=== PATIENT | female | born 1930 | race Caucasian/White ===

== ENCOUNTER 2018-08-15 12:26 | Inpatient (IN) | payer MEDICARE ==
[2018-08-15 12:51] LABS: Bilirubin Negative (Negative); Blood, Urine Large (Negative); Clarity TURBID (Clear); Glucose, Urine (Dipstick) Negative (Negative); Leukocyte Large (Negative); Nitrite Positive (Negative); Protein, Urine (Dipstick) 300 mg/dL (Neg-Trace); Specific Gravity, Urine 1.017 (1.002-1.036)
[2018-08-15 12:55] LABS: Yeast-AUWi Flag 223.9 (0-25.0)
[2018-08-15 13:02] LABS: Bacteria/HPF 2+ HPF (None Seen)
[2018-08-15 13:03] LABS: Hyaline Casts/LPF NONE SEEN LPF (0-3 Hyaline); Other Casts/LPF None Seen LPF (0-3 Hyaline); Yeast-All Forms None Seen HPF (None Seen)
[2018-08-15 13:19] LABS: #Basophils 0.1 thou/uL (0.0-0.2); #Eosinphils 0.1 thou/uL (0.0-0.7); #Lymphocytes 1.5 thou/uL (1.20-3.40); #Monocytes 1.3 thou/uL (0.11-0.59); #Neutrophils 12.5 thou/uL (1.40-6.50); %Basophils 0.3 % (0.0-1.0); %Eosinophils 0.7 % (0.0-10.0); %Lymphocytes 9.7 % (21.0-51.0); %Monocytes 8.4 % (0.0-10.0); %Neutrophils 80.9 % (42.0-75.0); Hemoglobin 12.2 g/dL (12.0-16.0); Mean Corpuscular HGB CONC 32.1 g/dL (32.0-36.0); Mean Corpuscular Hemoglobin 30.3 pg (27.0-31.0); Mean Corpuscular Volume 94.6 fL (78.0-98.0); Mean Platelet Volume 6.9 fL (7.4-10.4); Platelet Count 375 thou/uL (130-400); RBC Distribution Width 12.7 % (11.5-14.5); Red Blood Cell (RBC) Count 4.02 mill/uL (4.20-5.40); White Blood Cell (WBC) Count 15.5 thou/uL (4.8-10.8)
[2018-08-15] MEDS ORDERED: cefTRIAXone\\ROCEPHIN 1 GM VIAL ONE (13:40)
[2018-08-15 13:41] LABS: ALT (SGPT) 15 U/L (8-55); AST (SGOT) 17 U/L (5-34); Albumin 3.3 g/dL (3.4-4.8); Alkaline Phosphatase 99 U/L (40-150); Anion Gap 16 mmol/L (10-20); BUN (Urea Nitrogen) 15 mg/dL (9.8-20.1); Bilirubin, Total 0.5 mg/dL (0.2-1.2); Calc. Creatinine Clearance 0 mL/min (70-130); Calcium 9.3 mg/dL (7.8-10.44); Carbon Dioxide 22 mmol/L (23-31); Chloride 101 mmol/L (98-107); Estimated GFR-MDRD 67; Globulin 3.1 g/dL (2.4-3.5); Glucose 114 mg/dL (83-110); Lipase 12 U/L (8-78); Potassium 3.9 mmol/L (3.5-5.1); Protein, Total 6.4 g/dL (6.0-8.3); Sodium 135 mmol/L (136-145)
[2018-08-15 13:45] LABS: Lactic Acid 1.5 mmol/L (0.5-2.2)
[2018-08-15 15:29] VITALS: BMI 24.3
--- NOTE | 2018-08-15 18:51 | HP ---
CHIEF COMPLAINT: Altered mental status. HISTORY OF PRESENT ILLNESS: This patient is an 88-year-old female who has some Alzheimer's type robb ntia, but is otherwise generally pretty healthy. The patient lives in an independent living facility here in [facility]. Patient's granddaughter is her power of team truck driver and checks on her fairly f requently. She called the patient earlier in the week and the patient reported she was doing well. She called her again yesterday and then this morning, went to check on the patient and found the kuldeep ent was still lying in bed. When she talked to her, she did not recognize the granddaughter. She is more confused than her typical baseline. She also told the granddaughter this morning that she was having some dysuria and a granddaughter who works here as a nurse also noted that she had some pelvic tenderness to palpation at that time. Currently, the patient reports that she just generally feels weak and tired. She does admit to having some dysuria and complains of some pain in her right hand a ssociated with her IV, but otherwise no other specific complaints. REVIEW OF SYSTEMS: The patient believes she had a bowel movement yesterday. She says she has been d rinking fluids, but not been eating a lot. The granddaughter says she is not sure that the patient h as not been eating or drinking at all in the last couple of days. She does manage her medications wi th the pills order and notes that the patient has not taken medications since . Otherwise, r eview of systems is unobtainable due to the patient's baseline dementia and current altered mental st atus. We are working from a conversation with the patient's granddaughter and prior medical records. PAST MEDICAL HISTORY: Alzheimer's disease, hypertension, allergic rhinitis, chronic constipation PAST SURGICAL HISTORY: x2, appendectomy, tooth extractions, status post right knee replace ment. ALLERGIES: SULFA DRUGS. CURRENT MEDICATIONS: Aspirin 81 mg daily, lisinopril 10 every day, melatonin 3 mg at bedtime, Lorata dine 10 mg every day, docusate 100 mg every day, donepezil 10 mg daily, Namenda XR extended release 2 8 mg 1 p.o. daily, Centrum Silver 1 p.o. daily. SOCIAL HISTORY: The patient lives at an independent living facility. She is a nonsmoker, nondrinker . Her granddaughter is her power of team truck driver and surrogate decision maker and she is a DNR. PHYSICAL EXAMINATION: VITAL SIGNS: BP 123/56, pulse 82, respirations 20, O2 sat 98% on room air. GENERAL APPEARANCE: Age appropriate female. She is awake and alert, very pleasant, cooperative and maintaining good sense of humor. HEENT: PERRL. No OP lesions. Oral mucosa is fairly moist. NECK: Supple and symmetric without lymphadenopathy, JVD or bruits. HEART: Regular rate and rhythm with no murmurs, gallops or rubs. LUNGS: Clear to auscultation bilaterally with no wheezes or rales. ABDOMEN: Soft, nontender, nondistended, positive bowel sounds, no masses, no organomegaly. EXTREMITIES: A well healed surgical incisional scar in the right knee. No edema. No cyanosis or cl ubbing. LABORATORY DATA: White count 15.5, hemoglobin 12.2, platelets 375, 81% neutrophils, 10% lymphocytes. Sodium 135, potassium 3.9, chloride 102, CO2 of 22, BUN 15, creatinine 0.81, glucose 114, lactic ac id 1.5. Albumin 3.3. Urinalysis: Large blood, positive nitrites, large leukocyte esterase, 7-10 re d cells, greater than 50 white cells, 7-10 squamous epithelial cells and 2+ bacteria. IMPRESSION AND PLAN: 1. Urinary tract infection with leukocytosis and some altered mental status. The patient has been g iven Rocephin. We will continue with IV Rocephin 1 gram q.24 hours. We will follow up on cultures. 2. Baseline Alzheimer's dementia, stable. We will resume her usual home medication regimen. 3. Hypertension appears to be well controlled. The patient is apparently not taking her medicine fo r a couple of days. We will hold off on resuming that until she demonstrates some need. 4. Acute metabolic encephalopathy secondary to urinary tract infection should resolve as we treat in fection.
[2018-08-15] MEDS: Donepezil HCl 10 MG TAB PO SCH (19:54)
[2018-08-15] MEDS ORDERED: MEMANTINE HCL 28 MG PO SCH (21:00)
[2018-08-16 05:27] LABS: Anion Gap 11 mmol/L (10-20); BUN (Urea Nitrogen) 11 mg/dL (9.8-20.1); Calc. Creatinine Clearance 56 mL/min (70-130); Calcium 8.7 mg/dL (7.8-10.44); Carbon Dioxide 25 mmol/L (23-31); Chloride 103 mmol/L (98-107); Estimated GFR-MDRD 74; Glucose 118 mg/dL (83-110); Potassium 3.7 mmol/L (3.5-5.1); Sodium 135 mmol/L (136-145)
[2018-08-16 05:34] LABS: Hemoglobin 11.4 g/dL (12.0-16.0); Lymphocytes 13 % (21-51); MDiff Complete? YES; Mean Corpuscular HGB CONC 31.6 g/dL (32.0-36.0); Mean Corpuscular Hemoglobin 29.8 pg (27.0-31.0); Mean Corpuscular Volume 94.2 fL (78.0-98.0); Mean Platelet Volume 7.3 fL (7.4-10.4); Monocytes 7 % (0-10); Neutrophil 79 % (42-75); PLT Morphology Comment Appears Adequate; Platelet Count 353 thou/uL (130-400); RBC Distribution Width 12.6 % (11.5-14.5); Red Blood Cell (RBC) Count 3.83 mill/uL (4.20-5.40); White Blood Cell (WBC) Count 17.4 thou/uL (4.8-10.8)
[2018-08-16] MEDS: Enoxaparin Sodium 30 MG/0.3 ML SYRINGE SC SCH (08:41)
[2018-08-16] MEDS: Aspirin 325 MG TAB PO SCH (08:41)
[2018-08-16] MEDS: Loratadine 10 MG TAB PO SCH (08:42)
[2018-08-16] MEDS: Multivitamin W/ Minerals 1 TAB PO SCH (08:42)
[2018-08-16] MEDS: Lisinopril 10 MG TAB PO SCH (08:47)
[2018-08-16] MEDS: Sodium Chloride 0.9% 1,000 ML IV SCH (08:56)
--- NOTE | 2018-08-16 09:14 | PDOC.PN ---
- Subjective Encounter Start Date: 08/16/18 Encounter Start Time: 09:12 Does not feel too bad today. - Objective Resuscitation Status: Resuscitation Status DNR:Do Not Resuscitate Vital Signs & Weight: Vital Signs (12 hours) Temp Pulse Resp BP Pulse Ox 08/16/18 08:00 96 08/16/18 07:58 98.1 F 79 18 97/53 L 96 08/16/18 04:00 98.8 F 87 16 126/60 95 08/16/18 00:00 99.7 F H 80 16 131/60 96 Weight Weight 146 lb I&O: 08/15/18 08/16/18 08/17/18 06:59 06:59 06:59 Intake Total 240 Output Total 675 Balance -435 Result Diagrams: 08/16/18 04:51 08/16/18 04:51 Phys Exam - Physical Examination Constitutional: NAD Respiratory: no wheezing, no rales, no rhonchi, clear to auscultation bilateral Cardiovascular: RRR, no significant murmur Gastrointestinal: soft, non-tender, no distention Musculoskeletal: no edema Psychiatric: normal affect Dx/Plan (1) UTI (urinary tract infection) Status: Acute Comment: Continue Roceph, add Zosyn since wbc up. Follow culture. (2) Metabolic encephalopathy Code(s): G93.41 - METABOLIC ENCEPHALOPATHY Status: Acute Comment: Appears improved. Secondary to infection. (3) Alzheimer's dementia Code(s): G30.9 - ALZHEIMER'S DISEASE, UNSPECIFIED Status: Chronic Comment: Not bad. Continue home meds. - Plan * above.
[2018-08-16] MEDS: Acetaminophen 325 MG TAB PO PRN ×2 (10:05→17:56)
[2018-08-16] MEDS: Piperacillin/Tazobactam 3.375 GM in Sodium Chloride 0.9% 100 ML IVPB SCH ×2 (12:26→17:56)
[2018-08-16] MEDS: cefTRIAXone\\ROCEPHIN 1 GM in Sodium Chloride 0.9% 100 ML IVPB SCH (14:27)
[2018-08-16] MEDS: Donepezil HCl 10 MG TAB PO SCH (21:52)
[2018-08-16] MEDS: Phenazopyridine HCl 97.5 MG TABLET PO SCH (21:52)
[2018-08-17] MEDS: Acetaminophen 325 MG TAB PO PRN ×2 (00:03→23:48)
[2018-08-17] MEDS: Piperacillin/Tazobactam 3.375 GM in Sodium Chloride 0.9% 100 ML IVPB SCH ×2 (00:05→06:01)
[2018-08-17] MEDS: Sodium Chloride 0.9% 1,000 ML IV SCH (04:20)
[2018-08-17] MEDS: Lisinopril 10 MG TAB PO SCH (09:20)
[2018-08-17] MEDS: Enoxaparin Sodium 30 MG/0.3 ML SYRINGE SC SCH (09:20)
[2018-08-17] MEDS: Aspirin 325 MG TAB PO SCH (09:20)
[2018-08-17] MEDS: Loratadine 10 MG TAB PO SCH (09:21)
[2018-08-17] MEDS: Phenazopyridine HCl 97.5 MG TABLET PO SCH ×3 (09:21→20:10)
[2018-08-17] MEDS: Multivitamin W/ Minerals 1 TAB PO SCH (09:21)
--- NOTE | 2018-08-17 09:29 | PDOC.PN ---
- Subjective Encounter Start Date: 08/17/18 Encounter Start Time: 09:27 Feels well. A little better. Still some dysuria. - Objective Resuscitation Status: Resuscitation Status DNR:Do Not Resuscitate MAR Reviewed: Yes Vital Signs & Weight: Vital Signs (12 hours) Temp Pulse Resp BP BP Pulse Ox 08/17/18 09:20 124/57 L 08/17/18 08:09 98.4 F 71 18 124/57 L 96 08/17/18 04:32 98.3 F 66 16 139/62 98 08/16/18 23:28 100.5 F H 96 16 146/63 H 96 Weight Weight 146 lb I&O: 08/16/18 08/17/18 08/18/18 06:59 06:59 06:59 Intake Total 240 1900 938 Output Total 675 Balance -435 1900 938 Result Diagrams: 08/16/18 04:51 08/16/18 04:51 Phys Exam - Physical Examination Constitutional: NAD Respiratory: no wheezing, no rales, no rhonchi, clear to auscultation bilateral Cardiovascular: RRR, no significant murmur Gastrointestinal: soft, non-tender, no distention Musculoskeletal: no edema Psychiatric: normal affect, A&O x 3 Dx/Plan (1) UTI (urinary tract infection) Status: Acute Comment: E coli. Continue Roceph, stop Zosyn. Follow blood culture. (2) Metabolic encephalopathy Code(s): G93.41 - METABOLIC ENCEPHALOPATHY Status: Acute Comment: Appears improved. Secondary to infection. (3) Alzheimer's dementia Code(s): G30.9 - ALZHEIMER'S DISEASE, UNSPECIFIED Status: Chronic Comment: Not bad. Continue home meds. - Plan * Continue IV abx today since WBC up and Tm 100.5. * Family wants to consider HH and possibly MARGARET at discharge.
[2018-08-17] MEDS: cefTRIAXone\\ROCEPHIN 1 GM in Sodium Chloride 0.9% 100 ML IVPB SCH (14:50)
[2018-08-17] MEDS: Donepezil HCl 10 MG TAB PO SCH (20:10)
[2018-08-18 05:09] LABS: Hemoglobin 10.7 g/dL (12.0-16.0); Platelet Count 314 thou/uL (130-400)
--- NOTE | 2018-08-18 08:54 | PDOC.PN ---
- Subjective Encounter Start Date: 08/18/18 Encounter Start Time: 08:52 Says she is feeling quite a bit better. - Objective Resuscitation Status: Resuscitation Status DNR:Do Not Resuscitate Vital Signs & Weight: Vital Signs (12 hours) Temp Pulse Resp BP BP Pulse Ox 08/18/18 03:51 98.4 F 71 16 130/63 97 08/18/18 00:00 100.2 F H 84 16 133/60 98 Weight Weight 146 lb I&O: 08/17/18 08/18/18 08/19/18 06:59 06:59 06:59 Intake Total 1900 2638 Output Total 750 Balance 1900 1888 Result Diagrams: 08/18/18 04:51 08/18/18 04:51 Phys Exam - Physical Examination Constitutional: NAD Respiratory: no wheezing, no rales, no rhonchi, clear to auscultation bilateral Cardiovascular: RRR, no significant murmur, no rub Gastrointestinal: soft, no distention, positive bowel sounds Slight suprapubic TTP. No guarding. Musculoskeletal: no edema Dx/Plan (1) UTI (urinary tract infection) Status: Acute Comment: E coli. Continue Roceph. Blood cultures are negative. Low grade temp. Continue IV rocephin for now. Has good oral options. (2) Metabolic encephalopathy Code(s): G93.41 - METABOLIC ENCEPHALOPATHY Status: Acute Comment: Appears improved. Secondary to infection. (3) Alzheimer's dementia Code(s): G30.9 - ALZHEIMER'S DISEASE, UNSPECIFIED Status: Chronic Comment: Not bad. Continue home meds. - Plan * Continue IV abx. Check CXR to rule out other source of fever. Follow up WBC. * Appreciate PT eval. Consult Walking Program. * Working on disposition. Hope to discharge in am.
[2018-08-18 09:16] LABS: #Basophils 0.1 thou/uL (0.0-0.2); #Eosinphils 0.3 thou/uL (0.0-0.7); #Lymphocytes 2.1 thou/uL (1.20-3.40); #Monocytes 1.2 thou/uL (0.11-0.59); #Neutrophils 7.7 thou/uL (1.40-6.50); %Basophils 0.7 % (0.0-1.0); %Eosinophils 2.3 % (0.0-10.0); %Lymphocytes 18.2 % (21.0-51.0); %Neutrophils 67.9 % (42.0-75.0); Mean Corpuscular HGB CONC 30.7 g/dL (32.0-36.0); Mean Corpuscular Hemoglobin 29.8 pg (27.0-31.0); Mean Corpuscular Volume 97.2 fL (78.0-98.0); Mean Platelet Volume 7.6 fL (7.4-10.4); RBC Distribution Width 12.9 % (11.5-14.5); Red Blood Cell (RBC) Count 3.58 mill/uL (4.20-5.40); White Blood Cell (WBC) Count 11.3 thou/uL (4.8-10.8)
[2018-08-18] MEDS: Lisinopril 10 MG TAB PO SCH (09:20)
[2018-08-18] MEDS: Aspirin 325 MG TAB PO SCH (09:20)
[2018-08-18] MEDS: Enoxaparin Sodium 30 MG/0.3 ML SYRINGE SC SCH (09:20)
[2018-08-18] MEDS: Phenazopyridine HCl 97.5 MG TABLET PO SCH ×2 (09:20→14:20)
[2018-08-18] MEDS: Multivitamin W/ Minerals 1 TAB PO SCH (09:20)
[2018-08-18] MEDS: Loratadine 10 MG TAB PO SCH (09:20)
--- NOTE | 2018-08-18 09:50 | RAD ---
CHEST TWO VIEWS: 08/18/2018 PROVIDED CLINICAL HISTORY: Fever. COMPARISON: None. FINDINGS: The cardiac and mediastinal silhouette are within normal limits. Vascular calcification involves the thoracic aorta. No focal consolidation, pleural fluid, or pneumothorax apparent. Right convexity c urvature of the lower thoracic and upper lumbar spine noted. IMPRESSION: 1. No evidence for an acute cardiopulmonary process. 2. Atherosclerosis. POS: [facility]
[2018-08-18] MEDS: cefTRIAXone\\ROCEPHIN 1 GM in Sodium Chloride 0.9% 100 ML IVPB SCH (14:20)
[2018-08-18] MEDS: Donepezil HCl 10 MG TAB PO SCH (21:20)
[2018-08-19] MEDS: Acetaminophen 325 MG TAB PO PRN (02:35)
[2018-08-19 05:19] LABS: #Basophils 0.1 thou/uL (0.0-0.2); #Eosinphils 0.3 thou/uL (0.0-0.7); #Lymphocytes 1.9 thou/uL (1.20-3.40); #Neutrophils 6.7 thou/uL (1.40-6.50); %Basophils 0.6 % (0.0-1.0); %Eosinophils 3.1 % (0.0-10.0); %Lymphocytes 19.3 % (21.0-51.0); %Monocytes 9.9 % (0.0-10.0); %Neutrophils 67.2 % (42.0-75.0); Hemoglobin 10.3 g/dL (12.0-16.0); Mean Corpuscular HGB CONC 31.7 g/dL (32.0-36.0); Mean Corpuscular Hemoglobin 30.5 pg (27.0-31.0); Mean Corpuscular Volume 96.2 fL (78.0-98.0); Mean Platelet Volume 7.5 fL (7.4-10.4); Platelet Count 324 thou/uL (130-400); RBC Distribution Width 12.6 % (11.5-14.5); Red Blood Cell (RBC) Count 3.39 mill/uL (4.20-5.40)
[2018-08-19 08:28] VITALS: TEMP 97.6
[2018-08-19] MEDS: Lisinopril 10 MG TAB PO SCH (08:32)
[2018-08-19] MEDS: Aspirin 325 MG TAB PO SCH (08:32)
[2018-08-19] MEDS: Loratadine 10 MG TAB PO SCH (08:32)
[2018-08-19] MEDS: Multivitamin W/ Minerals 1 TAB PO SCH (08:32)
[2018-08-19] MEDS: Enoxaparin Sodium 30 MG/0.3 ML SYRINGE SC SCH (08:36)
[2018-08-19 08:39] VITALS: BP 126/60
== END 2018-08-19 14:05 | disposition home or self-care (01) | DRG 689 ==
LOC: ERS 12:26 → ONC 13:51
PROVIDERS: ADMIT Internal Medicine; ATTEND Internal Medicine
DX: N39.0 Urinary tract infection, site not specified (principal); G93.41 Metabolic encephalopathy; B96.20 Unspecified Escherichia coli [E. coli] as the cause of diseases classified elsewhere; G30.9 Alzheimer's disease, unspecified; F02.80 Dementia in other diseases classified elsewhere, unspecified severity, without behavioral disturbance, psychotic disturbance, mood disturbance, and anxiety; I10 Essential (primary) hypertension; K59.09 Other constipation; J30.2 Other seasonal allergic rhinitis; Z96.653 Presence of artificial knee joint, bilateral; Z88.2 Allergy status to sulfonamides; Z79.82 Long term (current) use of aspirin; Z66 Do not resuscitate
CPT/HCPCS: 36415; 51701; 71046; 80048; 80053; 81003; 81015; 82565; 83605; 83690; 85025; 87040; 87077; 87086; 87186; 90471; 90662; 96365; A4353; G0008; G8978-GP-CM; G8979-GP-CJ; J0696; J1650; J2543; J7050

== ENCOUNTER 2018-11-11 10:47 | Observation (INO) | payer MEDICARE ==
--- NOTE | 2018-11-11 11:58 | RAD ---
CHEST 1 VIEW: Date: 11/11/18 HISTORY: Altered mental status, being treated for UTI. FINDINGS: Heart size is within normal limits. There are atherosclerotic changes of the aorta. There is some nan ear scarring in the left base. No focal infiltrative process. IMPRESSION: No active intrathoracic disease. POS: [facility]
[2018-11-11 12:00] LABS: #Basophils 0.1 thou/uL (0.0-0.2); #Eosinphils 0.1 thou/uL (0.0-0.7); #Lymphocytes 1.8 thou/uL (1.20-3.40); #Monocytes 0.6 thou/uL (0.11-0.59); #Neutrophils 5.5 thou/uL (1.40-6.50); %Basophils 0.7 % (0.0-1.0); %Eosinophils 1.8 % (0.0-10.0); %Lymphocytes 22.2 % (21.0-51.0); %Monocytes 7.6 % (0.0-10.0); %Neutrophils 67.7 % (42.0-75.0); Hemoglobin 12.8 g/dL (12.0-16.0); Mean Corpuscular Hemoglobin 31.1 pg (27.0-31.0); Mean Corpuscular Volume 97.1 fL (78.0-98.0); Mean Platelet Volume 7.7 fL (7.4-10.4); Platelet Count 251 thou/uL (130-400); RBC Distribution Width 13.4 % (11.5-14.5); Red Blood Cell (RBC) Count 4.12 mill/uL (4.20-5.40); White Blood Cell (WBC) Count 8.1 thou/uL (4.8-10.8)
--- NOTE | 2018-11-11 12:00 | CT ---
CT OF BRAIN PERFORMED WITHOUT CONTRAST ENHANCEMENT: Date: 11/11/18 HISTORY: Altered mental status. COMPARISON: 06/21/17. FINDINGS: Generalized ventricular and sulcal prominence with decreased attenuation to the periventricular white matter consistent with some chronic white matter change. No signs for intracerebral hemorrhage or ex tra-axial fluid collections. Mastoid air cells and visualized sinuses are clear. IMPRESSION: No acute intracranial abnormalities. POS: [facility]
[2018-11-11 12:08] LABS: ALT (SGPT) 10 U/L (8-55); AST (SGOT) 22 U/L (5-34); Albumin 3.5 g/dL (3.4-4.8); Alkaline Phosphatase 91 U/L (40-150); Anion Gap 16 mmol/L (10-20); BUN (Urea Nitrogen) 14 mg/dL (9.8-20.1); Bilirubin, Total 0.3 mg/dL (0.2-1.2); Calc. Creatinine Clearance 0 mL/min (70-130); Calcium 9.3 mg/dL (7.8-10.44); Carbon Dioxide 21 mmol/L (23-31); Chloride 106 mmol/L (98-107); Estimated GFR-MDRD 69; Globulin 2.9 g/dL (2.4-3.5); Glucose 104 mg/dL (83-110); Potassium 4.1 mmol/L (3.5-5.1); Protein, Total 6.4 g/dL (6.0-8.3); Sodium 139 mmol/L (136-145)
[2018-11-11 12:44] LABS: Bilirubin Negative (Negative); Blood, Urine Negative (Negative); Clarity CLOUDY (Clear); Glucose, Urine (Dipstick) Negative (Negative); Leukocyte Trace (Negative); Nitrite Negative (Negative); Protein, Urine (Dipstick) Negative (Neg-Trace)
[2018-11-11 12:47] LABS: Pathc Cast-AUWi Flag 0.43 (0-2.49); RBC/HPF 0-3 HPF (0-3); Squamous Epithelial 0-3 HPF (0-3)
[2018-11-11 13:03] LABS: Bacteria/HPF 2+ HPF (None Seen); Hyaline Casts/LPF 0-3 HYALINE CAST LPF (0-3 Hyaline); Renal Epithelial None Seen HPF (0-3); Transitional Epithelial NONE SEEN HPF (0-3)
[2018-11-11] MEDS ORDERED: Senokot S 8.6-50 MG TAB PO PRN ×2 (14:31)
[2018-11-11] MEDS ORDERED: Bisacodyl 5 MG TAB PO PRN ×2 (14:31)
[2018-11-11] MEDS ORDERED: Benzonatate 100 MG CAP PO PRN (14:31)
[2018-11-11] MEDS ORDERED: Acetaminophen 325 MG TAB PO PRN (14:31)
[2018-11-11] MEDS ORDERED: Sodium Chloride 0.65% Nasal 44 ML BOT EA NARE PRN (14:31)
[2018-11-11] MEDS ORDERED: Diabetic Tussin 200 MG/10 ML UDCUP PO PRN (14:31)
[2018-11-11] MEDS ORDERED: cloNIDine 0.1 MG TAB PO PRN (14:31)
[2018-11-11] MEDS ORDERED: Nitroglycerin 0.4 MG TAB (25 Tab Bottle) SL PRN (14:31)
[2018-11-11] MEDS ORDERED: hydrALAZINE 20 MG/ML VIAL SLOW IVP PRN (14:31)
[2018-11-11] MEDS ORDERED: Ondansetron PF 4 MG/2 ML Vial IVP PRN (14:31)
[2018-11-11] MEDS ORDERED: Sodium Chloride 0.9% 1,000 ML IV SCH (14:45)
[2018-11-11] MEDS ORDERED: cefTRIAXone\\ROCEPHIN 1 GM in Sodium Chloride 0.9% 100 ML IVPB SCH (15:30)
--- NOTE | 2018-11-11 16:16 | HP ---
PRIMARY CARE PHYSICIAN: Juan Diego Ramos. CHIEF COMPLAINT: Altered mental status. HISTORY OF PRESENTING ILLNESS: Ms. Herrera is a very pleasant 88-year-old female with past medical history of Alzheimer dementia as well as hypertension, who presented to the ER with above-mentioned complaint. History is mainly obtained by the family and supplemented by the patient herself. Electronic medical records have been reviewed and the case has been discussed with admitting ER physician. Ms. Herrera was last admitted to our facility in August 2018, at which time, she was treated for E coli UTI that was resistant to quinolones. Ms. Herrera's granddaughter is our ICU nurse. She reports that Ms. Herrera lives at [facility] and at baseline, is able to recognize everybody and walks with the help of a walker. Her dementia is not severe except that she does have some short-term memory loss. Home health sees the patient and today they received a call from the home health nurse that Ms. Herrera was appearing very confused. She was recently diagnosed as having urinary tract infection, when the UA was checked because of complaints of dysuria. It did show +2 bacteria and she was started on ciprofloxacin. The culture reportedly from that urine sample was negative. Culture was negative. The patient herself complains of some burning with urination still ongoing. She denies any other symptoms. She does endorse some low-grade fever and poor appetite for the last few days. She denies any nausea, vomiting, diarrhea. She denies any cough, chest pain or shortness of breath. In the emergency room, she was found to have some altered mental status and right-sided weakness. A CT scan of the brain was done, which was unremarkable for any acute changes. Her urinalysis once again showed +2 bacteria, 4 to 6 wbc's and trace leukocyte esterase. Serum chemistries and CBC were unremarkable. Cardiac enzyme was normal. Chest x-ray was also done, which did not show any acute changes. She was noticed to have some bradycardia in the ER, as low as in the high 40s, but was asymptomatic with that. She is now being admitted for further workup for altered mental status and rule out TIA. PAST MEDICAL HISTORY: 1. Alzheimer dementia. 2. Hypertension. 3. Allergic rhinitis. 4. Chronic constipation. PAST SURGICAL HISTORY: 1. x2. 2. Appendectomy. 3. Tooth extraction. 4. Status post right knee replacement. ALLERGIES: INCLUDE SULFONAMIDES. SOCIAL HISTORY: She lives in an independent living facility at [facility]. No history of drug, tobacco, or alcohol abuse. Her granddaughter, Ms. Tinajero, is a power of senior trial attorney and surrogate decision maker. She is one of our ICU nurses. CODE STATUS: Do not resuscitate and intubate as confirmed with Ms. Tinajero. HOME MEDICATIONS: As listed in the ER records; 1. Melatonin 3 mg 2 tablets at bedtime. 2. Loratadine 10 mg daily. 3. Docusate 100 mg daily. 4. Donepezil 10 mg daily. 5. Namenda XR 28 mg at bedtime. 6. Centrum Silver daily. 7. Celexa 10 mg at bedtime. 8. Lisinopril 10 mg in the morning. 9. Aspirin 81 mg daily. REVIEW OF SYSTEMS: A 12-point review of systems is done. It is negative except for those mentioned in the history and physical. LABORATORY DATA: CBC is unremarkable. Serum chemistries, unremarkable except for bicarb low at 21. Lactic acid is normal. Troponin less than 0.010. Urinalysis shows +2 bacteria, and few wbc's. CT scan of the brain by my review is negative for any hemorrhage or mass effect. Chest x-ray by my review is negative for any evidence of pleural effusion, edema, or infiltrate. A 12-lead EKG by my review shows sinus bradycardia at 52 beats per minute. PHYSICAL EXAMINATION: VITAL SIGNS: Upon presentation, blood pressure of 136/58, pulse of 51, respirations 20, saturating 98% on room air, temperature 98.3. GENERAL: Lying comfortably in bed, in no acute distress. Awake, alert, and oriented x3. HEENT: Mucous membrane is moist and pink. No oropharyngeal exudate or erythema. Head is normocephalic, atraumatic. Pupils are equal and reactive to light and accommodation. Extraocular movement intact. NECK: Supple without any lymphadenopathy, JVD, or bruit. CHEST: Clear to auscultation without any wheezing, rales, rhonchi. CARDIOVASCULAR: Rate and rhythm are regular without any murmurs, rubs, or gallops. ABDOMEN: Somewhat tender to palpation in the right upper quadrant. No rebound, guarding, or rigidity. Bowel sounds are heard easily. No suprapubic tenderness. No distention or fluid wave. EXTREMITIES: Free of any cyanosis, clubbing, or edema. NEUROLOGIC: Largely nonfocal. She does have some subjective generalized weakness on examination, which is equal on both sides. Cranial nerves 2 through 12 are grossly intact. Gait is not checked. PSYCHIATRIC: Normal affect. She appears to be oriented x3. Eager to go home. SKIN: Free of any rashes or bruises. Feels warm and dry to touch. IMPRESSION AND PLAN: 1. Altered mental status. The patient's symptoms are most likely consistent with a urinary tract infection. I believe that her urine culture that was grown negative was either a contaminated sample or it was resistant to the ciprofloxacin she has been taking. Her last urine specimen and culture from our facility in August showed E coli that was resistant to quinolones. At this time, we will start her on Rocephin and send the urine for culture as well. 2. To further evaluate her brief confusion and right-sided weakness: We will do a CVA workup as well. MRI, echocardiogram, carotid Doppler ultrasound have been ordered. The patient is back at her baseline. No cardiac etiology is apparent at this time. 3. Sinus bradycardia. The patient is rather asymptomatic and suspect age-appropriate bradycardia at this time. If she does develop severe bradycardia, becomes symptomatic, we will get Cardiology consultation. At this time, an echocardiogram has been ordered. Cardiac enzymes are negative. 4. Urinary tract infection. We will start treatment with Rocephin as her prior urine cultures have been resistant to quinolones and the patient is still symptomatic with dysuria. Urine cultures have been sent. 5. History of Alzheimer dementia, currently stable. The patient will be followed in the outpatient setting. We will restart her donepezil and Namenda. Restart her Celexa as well. 6. Hypertension. Restart her home medications. 7. Code status. Do not resuscitate or intubate as discussed with her family. 8. Deep venous thrombosis and gastrointestinal prophylaxis and p.r.n. medications. DISPOSITION: Ms. Herrera is currently being admitted to the hospital for altered mental status, either from UTI or TIA or a combination of both. She is currently under observation status. Further management will depend upon her clinical course. Job ID: [id number]
[2018-11-11 17:09] VITALS: BMI 25.2
--- NOTE | 2018-11-11 19:04 | MRI ---
BRAIN MRI NONCONTRAST: Date: 11/11/18 INDICATION: Right-sided weakness. Reference made to head CT from earlier same date. FINDINGS: No acute territorial infarction, mass effect, midline shift, or parenchymal hemorrhage. There is mild parenchymal volume loss with compensatory dilatation of ventricular system. Scattered paranasal sinu s mucosal thickening is present. There is mild chronic ischemic disease. There is a partially empty s mic. Skull base flow-voids are patent. IMPRESSION: 1. No acute territorial infarction or mass effect. 2. Mild chronic ischemic disease. POS: [facility]
[2018-11-11] MEDS: Famotidine 20 MG TAB PO SCH (20:46)
[2018-11-11] MEDS ORDERED: Donepezil HCl 10 MG TAB PO SCH (21:00)
[2018-11-12 05:15] LABS: #Basophils 0.1 thou/uL (0.0-0.2); #Eosinphils 0.2 thou/uL (0.0-0.7); #Neutrophils 6.7 thou/uL (1.40-6.50); %Basophils 0.7 % (0.0-1.0); %Eosinophils 1.8 % (0.0-10.0); %Lymphocytes 19.8 % (21.0-51.0); %Monocytes 9.7 % (0.0-10.0); Hemoglobin 11.9 g/dL (12.0-16.0); Mean Corpuscular HGB CONC 32.8 g/dL (32.0-36.0); Mean Corpuscular Hemoglobin 31.5 pg (27.0-31.0); Mean Corpuscular Volume 96.2 fL (78.0-98.0); Mean Platelet Volume 7.7 fL (7.4-10.4); Platelet Count 227 thou/uL (130-400); RBC Distribution Width 13.4 % (11.5-14.5); Red Blood Cell (RBC) Count 3.78 mill/uL (4.20-5.40); White Blood Cell (WBC) Count 9.9 thou/uL (4.8-10.8)
[2018-11-12 05:30] LABS: Anion Gap 9 mmol/L (10-20); BUN (Urea Nitrogen) 16 mg/dL (9.8-20.1); Calc. Creatinine Clearance 59 mL/min (70-130); Calcium 9.2 mg/dL (7.8-10.44); Carbon Dioxide 28 mmol/L (23-31); Chloride 106 mmol/L (98-107); Estimated GFR-MDRD 70; Glucose 104 mg/dL (83-110); Potassium 4.3 mmol/L (3.5-5.1); Sodium 139 mmol/L (136-145)
--- NOTE | 2018-11-12 08:36 | ULT ---
CAROTID DUPLEX SONOGRAM: HISTORY: Vascular disease. TIA. FINDINGS: RIGHT: Plaque, most pronounced at the proximal ICA. COLOR AND SPECTRAL DOPPLER EVALUATION: A peak systolic velocity of 125 cm per second and an ICA/CCA ratio of 1.2 suggests stenosis within the proximal right ICA to approach 50%. Antegrade flow within the vertebral artery. LEFT: Mild plaque. COLOR AND SPECTRAL DOPPLER EVALUATION: A peak systolic velocity of 137 cm per second and an ICA/CCA ratio of 1.3 suggests stenosis within the proximal left ICA to be in the range of 50% to 69%. Antegr simeon flow within the vertebral artery. IMPRESSION: 1. Atherosclerotic. 2. Elevated velocities within the proximal internal carotid artery bilaterally, suggests stenosis in the range of 50% to 69%. Please consider correlation with convention or CT arteriography of the neck for better characterizati on. POS: [facility]
[2018-11-12] MEDS ORDERED: Docusate 100 MG CAP PO SCH (09:00)
[2018-11-12] MEDS ORDERED: Aspirin 325 MG TAB PO SCH (09:00)
[2018-11-12] MEDS ORDERED: Loratadine 10 MG TAB PO SCH (09:00)
[2018-11-12] MEDS ORDERED: Lisinopril 10 MG TAB PO SCH (09:00)
[2018-11-12] MEDS ORDERED: Multivitamin W/ Minerals 1 TAB PO SCH (09:00)
[2018-11-12] MEDS ORDERED: Enoxaparin Sodium 40 MG/0.4 ML SYRINGE SC SCH (09:00)
[2018-11-12] MEDS: Famotidine 20 MG TAB PO SCH (09:19)
[2018-11-12 12:04] VITALS: TEMP 97.9
--- NOTE | 2018-11-12 12:50 | PDOC.PN ---
- Subjective Encounter Start Date: 11/12/18 Encounter Start Time: 12:48 Subjective: feels well but family reports still very confused -: pt herself eager to go home - Objective Resuscitation Status - Order Detail: 11/11/18 15:34 Resuscitation Status Routine Resuscitation Status: DNAR: NO Resuscitation Discussed with: discussed with MPOA ,grand daughter ARIAS Reviewed: Yes Vital Signs & Weight: Vital Signs (12 hours) Temp Pulse Pulse Pulse Resp BP BP 11/12/18 12:00 97.9 F 72 16 11/12/18 10:05 77 98 149/68 H 11/12/18 09:18 93/60 11/12/18 08:00 98.1 F 58 L 16 11/12/18 04:00 99.2 F 69 16 BP BP Pulse Ox 11/12/18 12:00 144/61 H 97 11/12/18 10:05 153/85 H 11/12/18 09:18 11/12/18 08:00 93/60 98 11/12/18 04:00 111/61 95 Weight Weight 161 lb 3.2 oz I&O: 11/11/18 11/12/18 11/13/18 06:59 06:59 06:59 Intake Total 1465 Balance 1465 Result Diagrams: 11/12/18 04:57 11/12/18 04:57 Additional Labs: Microbiology 11/11/18 Unknown Venous blood - Left Arm Blood Culture - Preliminary Specimen has been received and culture in progress. No Growth to date. 11/11/18 12:21 Urine Straight Catheter Urine Culture - Preliminary NO GROWTH AT 24 HOURS 11/11/18 12:13 Venous blood - Left Arm Blood Culture - Preliminary Specimen has been received and culture in progress. No Growth to date. Laboratory Tests 11/11/18 11/11/18 11/11/18 12:13 15:30 18:05 Troponin I Less than 0.010 Less than 0.010 Less than 0.010 Phys Exam - Physical Examination Constitutional: NAD HEENT: PERRLA, moist MMs, sclera anicteric, oral pharynx no lesions Neck: no nodes, no JVD, supple, full ROM Respiratory: no wheezing, no rales, no rhonchi, clear to auscultation bilateral Cardiovascular: RRR, no significant murmur, no rub Gastrointestinal: soft, non-tender, no distention, positive bowel sounds Musculoskeletal: no edema, pulses present Neurological: non-focal, normal sensation, moves all 4 limbs Psychiatric: normal affect, A&O x 3 Skin: no rash Dx/Plan (1) UTI (urinary tract infection) Status: Acute Comment: Cx pending.on Rocephin based on last Urine Cx results in 08/29 (2) Altered mental status Code(s): R41.82 - ALTERED MENTAL STATUS, UNSPECIFIED Status: Acute (3) Sinus bradycardia Code(s): R00.1 - BRADYCARDIA, UNSPECIFIED Status: Acute Comment: will check TSH (4) Hypertension Code(s): I10 - ESSENTIAL (PRIMARY) HYPERTENSION Status: Chronic (5) Alzheimer's dementia Code(s): G30.9 - ALZHEIMER'S DISEASE, UNSPECIFIED Status: Chronic Comment: Not bad. Continue home meds. - Plan plan discussed w/ family, continue antibiotics, PT/OT, out of bed/ambulate, DVT proph w/SCDs NO CVA on MRI.mod carotid stenosis on doppler.will f/u OP.famly updated -: ECHO shows no significant abnormailty. -: cont rocephin and then change to PO . ellie sotelo today -: HH already in place * . Review of Systems - Review of Systems Constitutional: negative: fever, chills, sweats, weakness, malaise, other Respiratory: negative: Cough, Dry, Shortness of Breath, Hemoptysis, SOB with Excertion, Pleuritic Pain, Sputum, Wheezing Cardiovascular: negative: chest pain, palpitations, orthopnea, paroxysmal nocturnal dyspnea, edema, light headedness, other Gastrointestinal: negative: Nausea, Vomiting, Abdominal Pain, Diarrhea, Constipation, Melena, Hematochezia, Other Skin: negative: Rash, Lesions, Andre, Bruising, Other Other: limited due to some confusion and baseline dementia - Medications/Allergies Allergies/Adverse Reactions: Allergies Allergy/AdvReac Type Severity Reaction Status Date / Time Sulfa (Sulfonamide Allergy Rash Verified 06/16/17 11:55 Antibiotics) Medications: Current Medications Acetaminophen (Tylenol) 650 mg PO Q4H PRN PRN Reason: Headache/Fever/Mild Pain (1-3) Aspirin (Aspirin) 325 mg PO DAILY JERI Last Admin: 11/12/18 09:16 Dose: 325 mg Atorvastatin Calcium (Lipitor) 20 mg PO HS [facility] Benzonatate (Tessalon) 100 mg PO Q6H PRN PRN Reason: Cough Bisacodyl (Dulcolax) 10 mg PO DAILYPRN PRN PRN Reason: Constipation Ceftriaxone Sodium (Rocephin) 1 gm IM NOW [facility] Stop: 11/12/18 15:00 Clonidine (Catapres) 0.1 mg PO Q4H PRN PRN Reason: SBP >160 ____ Docusate Sodium (Colace) 100 mg PO DAILY [facility] Last Admin: 11/12/18 09:18 Dose: 100 mg Donepezil HCl (Aricept) 10 mg PO HS [facility] Last Admin: 11/11/18 22:10 Dose: 10 mg Enoxaparin Sodium (Lovenox) 40 mg SC 0900 [facility] Last Admin: 11/12/18 09:20 Dose: 40 mg Famotidine (Pepcid) 20 mg PO BID [facility] Last Admin: 11/12/18 09:19 Dose: 20 mg Guaifenesin (Robitussin Sf) 200 mg PO Q4H PRN PRN Reason: Cough Hydralazine HCl (Apresoline) 10 mg SLOW IVP Q4H PRN PRN Reason: SBP > 180 and HR < 70 Sodium Chloride (Normal Saline 0.9%) 1,000 mls @ 50 mls/hr IV .Q20H [facility] Last Admin: 11/11/18 16:39 Dose: 1,000 mls Ceftriaxone Sodium 1 gm/ (Sodium Chloride) 100 mls @ 200 mls/hr IVPB 1530 [facility] Last Admin: 11/11/18 16:49 Dose: 100 mls Iron/Minerals/Multivitamins (Theragran M) 1 tab PO DAILY [facility] Last Admin: 11/12/18 09:16 Dose: 1 tab Lisinopril (Zestril) 10 mg PO QAM [facility] Last Admin: 11/12/18 09:18 Dose: Not Given Loratadine (Claritin) 10 mg PO DAILY [facility] Last Admin: 11/12/18 09:18 Dose: 10 mg Melatonin (Melatonin) 6 mg PO HS [facility] Nitroglycerin (Nitrostat) 0.4 mg SL Q5MIN PRN PRN Reason: Chest Pain Ondansetron HCl (Zofran) 4 mg IVP Q6H PRN PRN Reason: Nausea/Vomiting Memantine Hcl [ Namenda Xr Titration Pack] 28 Mg 1 each PO HS [facility]ERI Senna/Docusate Sodium (Senokot S) 2 tab PO BIDPRN PRN PRN Reason: Constipation Sodium Chloride ([place] Nasal [place] 0.65%) 0 ml EA NARE QIDPRN PRN PRN Reason: Nasal Congestion Sodium Chloride (Flush - Normal Saline) 10 ml IVF Q12HR JERI Sodium Chloride (Flush - Normal Saline) 10 ml IVF PRN PRN PRN Reason: Saline Flush
[2018-11-12] MEDS ORDERED: cefTRIAXone\\ROCEPHIN 1 GM VIAL IM SCH (13:00)
[2018-11-12 13:31] VITALS: BP 148/65
[2018-11-12] MEDS ORDERED: Atorvastatin Calcium 20 MG TAB PO SCH (21:00)
[2018-11-12] MEDS ORDERED: Melatonin 3 MG TAB PO SCH (21:00)
[2018-11-12] MEDS ORDERED: MEMANTINE HCL 28 MG PO SCH (21:00)
--- NOTE | 2018-11-13 01:26 | DIS ---
DATE OF ADMISSION: 11/11/2018 DATE OF DISCHARGE: 11/12/2018 PRIMARY CARE PHYSICIAN: Juan Diego Ramos DO. DISCHARGE DISPOSITION: Home with standard home health. DISCHARGE DIAGNOSES: 1. Altered mental status, likely secondary to urinary tract infection. 2. Transient ischemic attack ruled out. 3. Alzheimer dementia. 4. Hypertension. 5. Sinus bradycardia. PROCEDURES DONE IN THE HOSPITAL: 1. CT scan of the brain upon presentation in the emergency room, which is negative for any acute abnormality. 2. MRI of the brain which shows no infarction or mass effect. Mild chronic ischemic disease seen. 3. Transthoracic echocardiogram which shows EF of 55% to 60%. with moderate mitral regurgitation. No thrombus in the cardiac chambers. Normal left ventricular size. 4. Carotid Doppler ultrasound. This shows bilateral stenosis in the range of 50% to 69% percent in the internal carotid arteries. DISCHARGE MEDICATIONS: 1. Omnicef 300 mg p.o. b.i.d. for 5 more days. 2. Florastor 250 mg daily for 7 days. 3. Atorvastatin 20 mg at bedtime. Resume home medications as follows. 1. Claritin daily 10 mg. 2. Memantine XR titration back 28 mg at bedtime. 3. Multivitamin daily. 4. Dulcolax daily. 5. Donepezil 10 mg daily. 6. Lisinopril 10 mg daily. 7. Aspirin 325 mg daily. 8. Ciprofloxacin has been stopped. HISTORY OF PRESENTING ILLNESS: Ms. Herrera is a very pleasant 88-year-old female with past medical history of some Alzheimer dementia and hypertension, who lives at independent living facility, was brought in for complaints of altered mental status and some right-sided weakness and slurred speech. Her symptoms resolved by the time she was brought into the emergency room. She was found to have a possible urinary tract infection. She is on ciprofloxacin upon presentation for presumed UTI checked a few days ago. CT scan of the brain and chest x-ray in the ER were unremarkable. She was admitted to stroke floor to rule out CVA and for treatment of UTI. Please see admission history and physical for further details. HOSPITAL COURSE: The patient did fairly well throughout the hospitalization. She remained hemodynamically stable. She was empirically started on Rocephin as the prior urine culture results were resistant to ciprofloxacin. The urine culture and blood cultures were sent again and are pending at this time. She did have some sinus bradycardia in the hospital, but was asymptomatic with that. The lowest heart rate recorded is at 56. TSH was checked which was normal in range. MRI of the brain, echocardiogram, and carotid Doppler ultrasound were done with results as mentioned above. She was seen by OT and PT. There was no evidence of acute stroke. Her symptoms most likely were secondary to urinary tract infection and not resolving. The carotid ultrasound Doppler results were discussed with the family who do not wish to pursue it any further. The patient was also started on statin. The patient was seen and examined prior to discharge and is almost back to her baseline. She will be discharged shortly with outpatient followup with her home health as well as primary care physician. Job ID: [id number]
== END 2018-11-12 14:00 | disposition home or self-care (01) ==
LOC: ERS 10:47 → 2SE 15:48
PROVIDERS: ADMIT Internal Medicine; ATTEND Internal Medicine
DX: R41.82 Altered mental status, unspecified (principal); G30.9 Alzheimer's disease, unspecified; F02.80 Dementia in other diseases classified elsewhere, unspecified severity, without behavioral disturbance, psychotic disturbance, mood disturbance, and anxiety; I10 Essential (primary) hypertension; R00.1 Bradycardia, unspecified; J30.9 Allergic rhinitis, unspecified; K59.09 Other constipation; N39.0 Urinary tract infection, site not specified; I67.82 Cerebral ischemia; Z79.82 Long term (current) use of aspirin; Z79.899 Other long term (current) drug therapy; Z88.2 Allergy status to sulfonamides; Z66 Do not resuscitate
CPT/HCPCS: 51701; 70450; 70551; 71045; 80048; 80053; 83605; 84443; 84484 ×2; 85025 ×2; 87040; 87086; 93005; 93306; 93880; 96361 ×2; 96372; 96374; 97116; 97139 ×3; 97535; 99285; G0378 ×2; 36415; 81003; 81015; A4353; J0696; J1650; J7050

== ENCOUNTER 2019-01-05 15:52 | Inpatient (IN) | payer MEDICARE ==
[2019-01-05] MEDS ORDERED: cefTRIAXone\\ROCEPHIN 2 GM VIAL ONE (17:02)
[2019-01-05] MEDS ORDERED: Acetaminophen 325 MG TAB ONE (17:04)
[2019-01-05 17:11] LABS: Hemoglobin 12.6 g/dL (12.0-16.0); Mean Corpuscular HGB CONC 32.2 g/dL (32.0-36.0); Mean Corpuscular Volume 96.1 fL (78.0-98.0); Mean Platelet Volume 7.4 fL (7.4-10.4); Platelet Count 287 thou/uL (130-400); RBC Distribution Width 13.7 % (11.5-14.5); Red Blood Cell (RBC) Count 4.06 mill/uL (4.20-5.40); White Blood Cell (WBC) Count 22.5 thou/uL (4.8-10.8)
[2019-01-05 17:20] LABS: Bilirubin Negative (Negative); Blood, Urine Large (Negative); Clarity TURBID (Clear); Glucose, Urine (Dipstick) Negative (Negative); Leukocyte Large (Negative); Nitrite Positive (Negative); Protein, Urine (Dipstick) 100 mg/dL (Neg-Trace); Specific Gravity, Urine 1.017 (1.002-1.036); pH, Urine 5.5 (5.0-9.0)
[2019-01-05 17:21] LABS: ALT (SGPT) 17 U/L (8-55); AST (SGOT) 26 U/L (5-34); Albumin 3.6 g/dL (3.4-4.8); Alkaline Phosphatase 105 U/L (40-150); Anion Gap 19 mmol/L (10-20); BUN (Urea Nitrogen) 22 mg/dL (9.8-20.1); Bilirubin, Total 0.8 mg/dL (0.2-1.2); Calc. Creatinine Clearance 0 mL/min (70-130); Calcium 9.7 mg/dL (7.8-10.44); Carbon Dioxide 22 mmol/L (23-31); Chloride 96 mmol/L (98-107); Estimated GFR-MDRD 48; Globulin 3.9 g/dL (2.4-3.5); Glucose 130 mg/dL (83-110); Potassium 4.9 mmol/L (3.5-5.1); Protein, Total 7.5 g/dL (6.0-8.3); Sodium 132 mmol/L (136-145)
[2019-01-05 17:22] LABS: Squamous Epithelial 0-3 HPF (0-3)
[2019-01-05 17:22] LABS: Band 9 % (5-11); Lymphocytes 3 % (21-51); MDiff Complete? YES; Metamyelocyte 1 % (0-0); Monocytes 3 % (0-10); Neutrophil 84 % (42-75); Platelet Morphology Comment Appears Adequate; Polychromasia SLIGHT = 2-3 cells (100X) (0-2/hpf)
[2019-01-05 17:23] LABS: Pathc Cast-AUWi Flag 114.91 (0-2.49); Yeast-AUWi Flag 73.4 (0-25.0)
[2019-01-05 17:39] LABS: Bacteria/HPF 4+ HPF (None Seen); Yeast-All Forms None Seen HPF (None Seen)
[2019-01-05 17:40] LABS: Hyaline Casts/LPF NONE SEEN LPF (0-3 Hyaline); Manual Microscopic Reviewed? No Path Casts Seen; Renal Epithelial None Seen HPF (0-3)
--- NOTE | 2019-01-05 18:05 | RAD ---
CHEST ONE VIEW: 01/05/19 HISTORY: Cough and fever. COMPARISON: 11/11/18. FINDINGS: The cardiac silhouette is magnified by projection. Pulmonary vasculature is unremarkable. Mediastinum is midline. No lobar consolidation or evidence of pneumothorax. Leftward convexed curvature of the t horacic spine is similar in appearance to the prior study. IMPRESSION: No active cardiopulmonary abnormalities are demonstrated. POS: [facility]
--- NOTE | 2019-01-05 18:08 | RAD ---
LEFT HIP TWO VIEWS: 01/05/19 HISTORY: Fall. Left hip pain. FINDINGS: Mildly impacted nondisplaced fracture extends through the subcapital level of the left hip. Mild dege nerative changes are also apparent. Osseous structures are demineralized. IMPRESSION: Mildly impacted subcapital fracture left hip. Osteoporosis. POS: [facility]
--- NOTE | 2019-01-05 18:48 | RAD ---
LUMBAR SPINE THREE VIEWS: 01/05/19 HISTORY: Low back pain. Fall. FINDINGS: There are five lumbar type vertebrae. Prominent rightward convexed rotatory scoliotic curvature. Post erior operative fixation at the lumbosacral junction with bilateral pedicle screws. No perihardware l ucency. Metallic marker is associated with interbody fusion material are within the confines of the d isc space. Other pedicles are intact. Vertebral body heights and AP alignment are maintained. Osseous structures are demineralized. Calcification over the arterial structures. IMPRESSION: Postoperative and prominent degenerative changes of the lumbar spine. No evidence of compression fracture. Osteoporosis. Atherosclerosis. POS: [facility]
[2019-01-05] MEDS ORDERED: Ondansetron PF 4 MG/2 ML Vial IVP PRN (19:44)
[2019-01-05] MEDS ORDERED: Ondansetron ODT 4 MG TAB SL PRN (19:44)
--- NOTE | 2019-01-05 19:51 | CT ---
CT LEFT HIP NONCONTRAST: 01/05/19 HISTORY: Fall. Left hip injury. Abnormal radiograph. FINDINGS: There is mild joint space narrowing with prominent osteophytosis and mild subchondral sclerosis. Subc ortical cysts at the acetabulum. No fractures are apparent on this exam. Trabeculae are continuous. Vascular channels and osteophytosi s about the femoral neck likely result in the area of concern for fracture on recent radiograph. With in the partially visualized left lower quadrant of the pelvis, there is stranding in the fat surround ing the partially visualized sigmoid colon with probable thickening of the colon wall. Osseous struct ures are demineralized. IMPRESSION: No evidence of left hip fracture. Prominent degenerative changes. Suspected inflammation involving and surrounding the sigmoid colon and the partially visualized pelvi s. Clinical correlation regarding other signs and symptoms of sigmoid diverticulitis is required. POS: [facility]
[2019-01-05 21:08] VITALS: BMI 25.0
[2019-01-05] MEDS ORDERED: Melatonin 3 MG TAB PO SCH (21:45)
[2019-01-05] MEDS: Donepezil HCl 10 MG TAB PO SCH (21:55)
[2019-01-05] MEDS: Lactated Ringer's 1,000 ML IV SCH (21:56)
[2019-01-06] MEDS: Acetaminophen 325 MG TAB PO PRN ×3 (01:23→20:04)
[2019-01-06] MEDS: Lactated Ringer's 1,000 ML IV SCH (05:45)
--- NOTE | 2019-01-06 06:10 | HP ---
TIME OF EVALUATION: 9:00 p.m. PRIMARY CARE DOCTOR: Juan Diego Ramos DO CODE STATUS: DNR/DNI. Discussed with the power of pouncer. The granddaughter who was at bedside. CHIEF COMPLAINT: Confusion and fever. HISTORY OF PRESENT ILLNESS: The patient is an 88-year-old female patient with past medical history of dementia and hypertension, who came to the hospital after having pain in the left hip, associated with fever, and change in mental status. The history is given by the granddaughter who happens to be an RN, the patient also have reportedly a fall a week ago and they were also concerned that the change in range of motion of the left hip related to fracture. Symptoms were reported as moderate. No clear triggers, no alleviating factors. Symptoms were generalized, have been present for the past few days, basically getting worse in the past 2 days. REVIEW OF SYSTEMS: Unable to obtain since the patient has underlying dementia. PAST MEDICAL HISTORY: As mentioned in the HPI. PAST SURGICAL HISTORY: Total knee replacement and hysterectomy. PSYCH HISTORY: History of dementia and depression. FAMILY HISTORY: Reviewed and non contributory to current presentation. SOCIAL HISTORY: No drug use. Former smoker, quit many years ago. KNOWN ALLERGIES: To sulfa. REPORTED MEDICATIONS: 1. Aspirin. 2. Lisinopril. 3. Melatonin. 4. Loratadine. 5. Docusate. 6. Donepezil. 7. Namenda. 8. Centrum. 9. Citalopram. PHYSICAL EXAMINATION: VITAL SIGNS: On presentation; blood pressure 140/90 with a heart rate 89, respiratory rate was 14, temperature 99.6. Pain 5/10. GENERAL APPEARANCE: The patient is alert, confused, in no acute distress. HEENT: Eyes, normal conjunctivae. Moist oral mucosa. Anicteric. NECK: No JVD. RESPIRATORY: Bilateral air entry. No rales. No wheezes. Symmetric expansion. CARDIOVASCULAR: Normal rate. Regular rhythm. No murmurs. No gallop. No edema. ABDOMEN: Soft. Normal bowel sounds. MUSCULOSKELETAL: Baseline range of motion and strength. No tenderness. SKIN: Warm and intact. No pallor. No rash. No redness. Peripheral pulses are present. Capillary refill seems to be intact. NEUROLOGIC: No evidence of any new focal weakness. The patient is confused, unable to fully explore. Cranial nerves seems to be intact. PSYCH: The patient is in good mood. No anxiety. Underlying dementia. DIAGNOSTIC DATA: Lower extremity CT was done. No evidence of left hip fracture. Prominent degenerative changes. Suspected inflammation involving surrounding of the sigmoid colon, partially visualized pelvis. Clinical correlation regarding all signs and symptoms of sigmoid diverticulitis is required. Chest x-ray was reviewed and was negative. The lumbar spine x-ray was done and showed possibility of prominent degenerative changes in the lumbar spine. No evidence of compression fracture, osteoporosis, atherosclerosis. Hip x-ray was done. The patient has mildly impacted subcapital fracture of the left hip, this has been ruled out in the CT of the hip. LABORATORY DATA: The labs were reviewed. The patient has a white count of 22.5 with hemoglobin 12.6, hematocrit 39, MCV 96.1, and platelet count 287. Chemistry; sodium 132, potassium 4.9, chloride 96, carbon dioxide 22, anion gap 19, BUN 22 , and creatinine 1.08. GFR 48. Glucose 130. Lactic acid 1.5. Calcium 9.7. Total bilirubin 0.8, AST 26, ALT 17, and alkaline phosphatase 105. Serum total protein 7.5, albumin 3.6, globulin 3.9, albumin to globulin ratio 0.9. Urine was done, white count was greater than 50, too numerous to count. ASSESSMENT AND PLAN: The patient is placed in the hospital with following medical problems: 1. Urinary tract infection, the patient has a positive urine, but has been started on antibiotics. We will follow cultures. We will treat accordingly. 2. Sepsis. The patient has white count of 22.5 with acute encephalopathy and also a fever on presentation. The source is urinary tract infection, the patient has been started on antibiotics. We will follow cultures and treat accordingly hydration. 3. Hyponatremia with sodium of 132, this is mild, no need for any acute intervention. We will monitor. The patient will receive fluids. 4. Hyperglycemia with blood sugar of 130, this is likely due to acute underlying physical distress. No history of diabetes reported, we will monitor. No need for any acute intervention at this point. 5. Underlying dementia. We will need supportive care. 6. Acute encephalopathy, though underlying dementia is likely secondary to sepsis, we will treat underlying condition. 7. Deep venous thrombosis prophylaxis. Job ID: [id number] [facility]
[2019-01-06 06:18] LABS: #Lymphocytes 1.1 thou/uL (1.20-3.40); #Monocytes 1.4 thou/uL (0.11-0.59); #Neutrophils 13.4 thou/uL (1.40-6.50); %Basophils 0.1 % (0.0-1.0); %Eosinophils 0.1 % (0.0-10.0); %Lymphocytes 6.7 % (21.0-51.0); %Monocytes 8.7 % (0.0-10.0); %Neutrophils 84.4 % (42.0-75.0); Mean Corpuscular HGB CONC 32.1 g/dL (32.0-36.0); Mean Corpuscular Hemoglobin 31.2 pg (27.0-31.0); Mean Corpuscular Volume 97.3 fL (78.0-98.0); Mean Platelet Volume 7.4 fL (7.4-10.4); Platelet Count 220 thou/uL (130-400); RBC Distribution Width 13.6 % (11.5-14.5); Red Blood Cell (RBC) Count 3.51 mill/uL (4.20-5.40); White Blood Cell (WBC) Count 15.9 thou/uL (4.8-10.8)
[2019-01-06 06:39] LABS: Anion Gap 14 mmol/L (10-20); BUN (Urea Nitrogen) 21 mg/dL (9.8-20.1); Calc. Creatinine Clearance 51 mL/min (70-130); Carbon Dioxide 22 mmol/L (23-31); Chloride 101 mmol/L (98-107); Estimated GFR-MDRD 65; Glucose 123 mg/dL (83-110); Potassium 4.2 mmol/L (3.5-5.1); Sodium 133 mmol/L (136-145)
--- NOTE | 2019-01-06 08:07 | CON ---
DATE OF CONSULTATION: 01/06/2019 This is Jane Laboy PA-C dictating a report for Speedy Florez MD. REASON FOR CONSULTATION: Possible left hip fracture. HISTORY OF PRESENT ILLNESS: This is an 88-year-old female with past medical history of dementia and hypertension, who came to the hospital after having pain in the left hip, associated with fever and change of mental status. She has been admitted to the Medicine Service for Urosepsis. Currently at bedside, the patient has no family available. History is obtained from medical records. In the emergency department yesterday, the granddaughter reported that the patient did fall a week ago and they were concerned about her left hip due to decreased range of motion. The patient denies any hip pain. She denies any numbness or tingling. She does not remember falling. PAST MEDICAL HISTORY: As mentioned above. Dementia and depression. PAST SURGICAL HISTORY: Total knee replacement and hysterectomy. SOCIAL HISTORY: Former smoker, quit many years ago. No drug use. The patient currently states that she lives at home. Although, I am not sure how accurate this is. No family at bedside. ALLERGIES: SULFA. REVIEW OF SYSTEMS: Unobtainable secondary to underlying dementia. PHYSICAL EXAMINATION: VITAL SIGNS: Show temperature 97.5, pulse of 79, respiratory rate of 18, O2 saturation 95% on room air, and blood pressure of 133/75. GENERAL: The patient is awake and alert. She is lying supine in bed. There are no family members in the room at this time. She is pleasant and converses with me well. She does not appear to be in any distress at this time. HEENT: Head is normocephalic and atraumatic. NECK: Supple. Trachea midline. Breathing is nonlabored. EXTREMITIES: The left lower extremity was evaluated. Negative log roll. No pain elicited with passive range of motion. The patient is able to flex at the hip and flex and extend at the knee on her own without any difficulty. No erythema of the skin. No soft tissue swelling noted. No evidence of trauma or wounds on the left lower extremity. Distal neurovascular status is intact. RADIOGRAPHIC DATA: Radiographic findings reviewed including plain films of the left hip, which demonstrate a possible nondisplaced femoral neck fracture. Further imaging was done with a CT. This showed no evidence for fracture, but rather osteoarthritic changes. ASSESSMENT: Hip pain in an elderly female with dementia, admitted for urosepsis. PLAN: At this time, there does not appear to be any hip fracture in this patient. This is osteoarthritic changes. The patient does not seem to have any pain in her hip on exam today. We will sign off for now. Please re-consult Orthopedics as needed. Thank you for this consultation. Job ID: [id number] [facility]
[2019-01-06] MEDS: Aspirin 325 MG TAB PO SCH (08:38)
[2019-01-06] MEDS: Multivitamin W/ Minerals 1 TAB PO SCH (08:38)
[2019-01-06] MEDS: Loratadine 10 MG TAB PO SCH (08:38)
[2019-01-06] MEDS: Docusate 100 MG CAP PO SCH (08:39)
[2019-01-06] MEDS: Enoxaparin Sodium 40 MG/0.4 ML SYRINGE SC SCH (08:44)
--- NOTE | 2019-01-06 15:09 | PQF ---
CLINICAL DOCUMENTATION IMPROVEMENT CLARIFICATION FORM: ICD-10 Updated PLEASE DO AN ADDENDUM TO THE PROGRESS NOTE WITH ANY DOCUMENTATION UPDATES OR ADDITIONS AND CARRY THROUGH TO DC SUMMARY. THANK YOU. DATE: 01/06/19 ATTN: DR. YING Please exercise your independent, professional judgment in responding to the clarification form. Clinical indicators are provided on the bottom of this form for your review Please check appropriate box(s): [ ] Encephalopathy: Type: [ ] Acute [ ] Subacute [ ] Chronic Etiology: [ ] Hypertensive [ ] Metabolic [ ] Toxic [ ] Hepatic with Coma [ ] Hepatic w/o Coma [ ] Hypoxic [ ] Septic [ ] Drug induced: [ ] Unspecified [ ] in the setting of underlying dementia [ ] Other (please specify) [ ] Transient Alteration of Awareness [ ] Other diagnosis [ ] Unable to determine In addition, please specify: Present on Admission (POA): [ ] Yes [ ] No [ ] Unable to determine For continuity of documentation, please document condition throughout progress notes and discharge summary. Thank You. CLINICAL INDICATORS - SIGNS / SYMPTOMS / LABS H&P: "ACUTE ENCEPHALOPATHY" TEMP 101.4 RISKS: SEPSIS UTI DEMENTIA TREATMENT: IV ROCEPHIN (ER-PRESENT) IV FLUIDS (ER) BLOOD AND URINE CULTURES (This form is maintained as a part of the permanent medical record) [employer] 2014 [employer]. All Rights Reserved [email or web address] Office: [phone] [facility] CENTERVerenice
--- NOTE | 2019-01-06 17:05 | PDOC.PN ---
- Subjective Encounter Start Date: 01/06/19 Encounter Start Time: 09:20 Pt seen for followup re; UTI. Pt says she feels better. - Objective Resuscitation Status - Order Detail: 01/05/19 20:56 Resuscitation Status Routine Resuscitation Status: DNAR: NO Resuscitation Discussed with: as discussed with SURYA BIANCHI Reviewed: Yes Vital Signs & Weight: Vital Signs (12 hours) Temp Pulse Resp BP Pulse Ox 01/06/19 12:12 98.3 F 65 18 101/60 95 01/06/19 08:16 98.6 F 80 16 129/73 95 Weight Admit Weight 150 lb 3.2 oz Weight 150 lb 3.2 oz I&O: 01/05/19 01/06/19 01/07/19 06:59 06:59 06:59 Intake Total 1490 1550 Output Total 253 Balance 1237 1550 Result Diagrams: 01/07/19 05:22 01/07/19 05:22 Additional Labs: Labs reviewed by me Phys Exam - Physical Examination Constitutional: NAD HEENT: moist MMs Neck: supple Respiratory: clear to auscultation bilateral Cardiovascular: RRR Gastrointestinal: soft Neurological: moves all 4 limbs Psychiatric: normal affect Deviation from normal: Oriented to person only Dx/Plan (1) UTI (urinary tract infection) Status: Acute Comment: E. coli UTI, continue ceftriaxone, follow sensitivities (2) Hyponatremia Code(s): E87.1 - HYPO-OSMOLALITY AND HYPONATREMIA Status: Acute Comment: sodium improved to 133 (3) Acute metabolic encephalopathy Code(s): G93.41 - METABOLIC ENCEPHALOPATHY Status: Acute Comment: Improving , likelly due to UTI (4) Alzheimer's dementia Code(s): G30.9 - ALZHEIMER'S DISEASE, UNSPECIFIED Status: Chronic Comment: Continue home meds. (5) Hypertension Code(s): I10 - ESSENTIAL (PRIMARY) HYPERTENSION Status: Chronic Comment: controlled (6) Sepsis Code(s): A41.9 - SEPSIS, UNSPECIFIED ORGANISM Status: Resolved - Plan plan discussed w/ family, continue antibiotics, out of bed/ambulate * . Review of Systems - Review of Systems Cardiovascular: negative: chest pain, palpitations, orthopnea, paroxysmal nocturnal dyspnea, edema, light headedness Gastrointestinal: negative: Nausea, Vomiting, Abdominal Pain, Diarrhea, Constipation, Melena, Hematochezia - Medications/Allergies Allergies/Adverse Reactions: Allergies Allergy/AdvReac Type Severity Reaction Status Date / Time Sulfa (Sulfonamide Allergy Rash Verified 06/16/17 11:55 Antibiotics) Medications: Current Medications Acetaminophen (Tylenol) 650 mg PO Q4H PRN PRN Reason: Headache/Fever or Pain Stop: 01/09/19 05:50 Last Admin: 01/06/19 11:20 Dose: 650 mg Aspirin (Aspirin) 325 mg PO DAILY [facility] Last Admin: 01/06/19 08:38 Dose: 325 mg Docusate Sodium (Colace) 100 mg PO DAILY [facility] Last Admin: 01/06/19 08:39 Dose: 100 mg Donepezil HCl (Aricept) 10 mg PO HS [facility] Last Admin: 01/05/19 21:55 Dose: 10 mg Enoxaparin Sodium (Lovenox) 40 mg SC 0900 [facility] Last Admin: 01/06/19 08:44 Dose: 40 mg Ceftriaxone Sodium 1 gm/ (Sodium Chloride) 100 mls @ 200 mls/hr IVPB Q24HR [facility] Iron/Minerals/Multivitamins (Theragran M) 1 tab PO DAILY [facility] Last Admin: 01/06/19 08:38 Dose: 1 tab Loratadine (Claritin) 10 mg PO DAILY [facility] Last Admin: 01/06/19 08:38 Dose: 10 mg Melatonin (Melatonin) 3 mg PO HS [facility] Memantine (Namenda) 10 mg PO BID [facility] Last Admin: 01/06/19 08:38 Dose: 10 mg Sodium Chloride (Flush - Normal Saline) 10 ml IVF PRN PRN PRN Reason: Saline Flush
[2019-01-06] MEDS: cefTRIAXone\\ROCEPHIN 1 GM in Sodium Chloride 0.9% 100 ML IVPB SCH (17:06)
[2019-01-06] MEDS: Melatonin 3 MG TAB PO SCH (20:03)
[2019-01-06] MEDS: Donepezil HCl 10 MG TAB PO SCH (20:04)
[2019-01-07 06:11] LABS: #Eosinphils 0.1 thou/uL (0.0-0.7); #Neutrophils 6.9 thou/uL (1.40-6.50); %Basophils 0.2 % (0.0-1.0); %Eosinophils 1.4 % (0.0-10.0); %Lymphocytes 11.4 % (21.0-51.0); %Monocytes 11.3 % (0.0-10.0); %Neutrophils 75.7 % (42.0-75.0); Hemoglobin 10.5 g/dL (12.0-16.0); Mean Corpuscular HGB CONC 32.4 g/dL (32.0-36.0); Mean Corpuscular Hemoglobin 31.5 pg (27.0-31.0); Mean Corpuscular Volume 97.4 fL (78.0-98.0); Mean Platelet Volume 7.5 fL (7.4-10.4); Platelet Count 217 thou/uL (130-400); RBC Distribution Width 13.5 % (11.5-14.5); Red Blood Cell (RBC) Count 3.34 mill/uL (4.20-5.40); White Blood Cell (WBC) Count 9.1 thou/uL (4.8-10.8)
[2019-01-07 06:32] LABS: Anion Gap 10 mmol/L (10-20); BUN (Urea Nitrogen) 16 mg/dL (9.8-20.1); Calc. Creatinine Clearance 58 mL/min (70-130); Calcium 8.7 mg/dL (7.8-10.44); Carbon Dioxide 28 mmol/L (23-31); Chloride 100 mmol/L (98-107); Estimated GFR-MDRD 74; Glucose 92 mg/dL (83-110); Potassium 4.1 mmol/L (3.5-5.1); Sodium 134 mmol/L (136-145)
[2019-01-07] MEDS: Docusate 100 MG CAP PO SCH (08:58)
[2019-01-07] MEDS: Multivitamin W/ Minerals 1 TAB PO SCH (08:58)
[2019-01-07] MEDS: Enoxaparin Sodium 40 MG/0.4 ML SYRINGE SC SCH (08:58)
[2019-01-07] MEDS: Aspirin 325 MG TAB PO SCH (08:58)
[2019-01-07] MEDS: Loratadine 10 MG TAB PO SCH (08:58)
[2019-01-07] MEDS: cefTRIAXone\\ROCEPHIN 1 GM in Sodium Chloride 0.9% 100 ML IVPB SCH (15:17)
--- NOTE | 2019-01-07 18:35 | PDOC.PN ---
- Subjective Encounter Start Date: 01/07/19 Encounter Start Time: 09:40 Pt seen for followup re: UTI. Feels well, no complaints. - Objective Resuscitation Status - Order Detail: 01/05/19 20:56 Resuscitation Status Routine Resuscitation Status: DNAR: NO Resuscitation Discussed with: as discussed with POA Vital Signs & Weight: Vital Signs (12 hours) Temp Pulse Resp BP Pulse Ox 01/07/19 16:00 99.4 F 64 18 100/61 94 L 01/07/19 12:56 98.7 F 01/07/19 08:40 99.0 F 70 20 111/65 92 L Weight Admit Weight 150 lb 3.2 oz Weight 150 lb 3.2 oz I&O: 01/06/19 01/07/19 01/08/19 06:59 06:59 06:59 Intake Total 1490 1660 1600 Output Total 253 Balance 1237 1660 1600 Result Diagrams: 01/07/19 05:22 01/07/19 05:22 Phys Exam - Physical Examination Constitutional: NAD HEENT: moist MMs Neck: supple Respiratory: clear to auscultation bilateral Cardiovascular: RRR Gastrointestinal: soft Neurological: moves all 4 limbs Psychiatric: normal affect Dx/Plan (1) UTI (urinary tract infection) Status: Acute Comment: E. coli UTI, continue ceftriaxone (2) Hyponatremia Code(s): E87.1 - HYPO-OSMOLALITY AND HYPONATREMIA Status: Acute Comment: sodium improved to 134 (3) Alzheimer's dementia Code(s): G30.9 - ALZHEIMER'S DISEASE, UNSPECIFIED Status: Chronic Comment: Continue home meds. (4) Hypertension Code(s): I10 - ESSENTIAL (PRIMARY) HYPERTENSION Status: Chronic Comment: controlled (5) Sepsis Code(s): A41.9 - SEPSIS, UNSPECIFIED ORGANISM Status: Resolved (6) Acute metabolic encephalopathy Code(s): G93.41 - METABOLIC ENCEPHALOPATHY Status: Resolved - Plan * . Review of Systems - Review of Systems Cardiovascular: negative: chest pain, palpitations, orthopnea, paroxysmal nocturnal dyspnea, edema, light headedness Gastrointestinal: negative: Nausea, Vomiting, Abdominal Pain, Diarrhea, Constipation, Melena, Hematochezia - Medications/Allergies Allergies/Adverse Reactions: Allergies Allergy/AdvReac Type Severity Reaction Status Date / Time Sulfa (Sulfonamide Allergy Rash Verified 06/16/17 11:55 Antibiotics) Medications: Current Medications Acetaminophen (Tylenol) 650 mg PO Q4H PRN PRN Reason: Headache/Fever or Pain Stop: 01/09/19 05:50 Last Admin: 01/06/19 20:04 Dose: 650 mg Aspirin (Aspirin) 325 mg PO DAILY [facility] Last Admin: 01/07/19 08:58 Dose: 325 mg Docusate Sodium (Colace) 100 mg PO DAILY [facility] Last Admin: 01/07/19 08:58 Dose: 100 mg Donepezil HCl (Aricept) 10 mg PO HS [facility] Last Admin: 01/06/19 20:04 Dose: 10 mg Enoxaparin Sodium (Lovenox) 40 mg SC 0900 [facility] Last Admin: 01/07/19 08:58 Dose: 40 mg Ceftriaxone Sodium 1 gm/ (Sodium Chloride) 100 mls @ 200 mls/hr IVPB Q24HR [facility] Last Admin: 01/07/19 15:17 Dose: 100 mls Iron/Minerals/Multivitamins (Theragran M) 1 tab PO DAILY [facility] Last Admin: 01/07/19 08:58 Dose: 1 tab Loratadine (Claritin) 10 mg PO DAILY [facility] Last Admin: 01/07/19 08:58 Dose: 10 mg Melatonin (Melatonin) 3 mg PO HS [facility] Last Admin: 01/06/19 20:03 Dose: 3 mg Memantine (Namenda) 10 mg PO BID [facility] Last Admin: 01/07/19 08:58 Dose: 10 mg Sodium Chloride (Flush - Normal Saline) 10 ml IVF PRN PRN PRN Reason: Saline Flush
[2019-01-07] MEDS: Donepezil HCl 10 MG TAB PO SCH (22:07)
[2019-01-07] MEDS: Melatonin 3 MG TAB PO SCH (22:07)
[2019-01-07] MEDS: Acetaminophen 325 MG TAB PO PRN (22:08)
[2019-01-08 06:39] LABS: #Basophils 0.1 thou/uL (0.0-0.2); #Eosinphils 0.2 thou/uL (0.0-0.7); #Lymphocytes 1.3 thou/uL (1.20-3.40); #Neutrophils 4.5 thou/uL (1.40-6.50); %Basophils 0.9 % (0.0-1.0); %Eosinophils 3.1 % (0.0-10.0); %Lymphocytes 18.5 % (21.0-51.0); %Monocytes 14.5 % (0.0-10.0); %Neutrophils 63.1 % (42.0-75.0); Hemoglobin 11.6 g/dL (12.0-16.0); Mean Corpuscular HGB CONC 32.5 g/dL (32.0-36.0); Mean Corpuscular Hemoglobin 31.8 pg (27.0-31.0); Mean Corpuscular Volume 97.8 fL (78.0-98.0); Mean Platelet Volume 7.5 fL (7.4-10.4); Platelet Count 249 thou/uL (130-400); RBC Distribution Width 13.5 % (11.5-14.5); Red Blood Cell (RBC) Count 3.66 mill/uL (4.20-5.40); White Blood Cell (WBC) Count 7.1 thou/uL (4.8-10.8)
[2019-01-08 06:54] LABS: Anion Gap 11 mmol/L (10-20); BUN (Urea Nitrogen) 14 mg/dL (9.8-20.1); Calc. Creatinine Clearance 59 mL/min (70-130); Calcium 9.4 mg/dL (7.8-10.44); Carbon Dioxide 31 mmol/L (23-31); Chloride 103 mmol/L (98-107); Estimated GFR-MDRD 77; Glucose 99 mg/dL (83-110); Potassium 5.1 mmol/L (3.5-5.1); Sodium 140 mmol/L (136-145)
[2019-01-08] MEDS: Aspirin 325 MG TAB PO SCH (08:30)
[2019-01-08] MEDS: Multivitamin W/ Minerals 1 TAB PO SCH (08:30)
[2019-01-08] MEDS: Loratadine 10 MG TAB PO SCH (08:31)
[2019-01-08] MEDS: Docusate 100 MG CAP PO SCH (08:31)
[2019-01-08] MEDS: Enoxaparin Sodium 40 MG/0.4 ML SYRINGE SC SCH (08:31)
--- NOTE | 2019-01-08 11:57 | PDOC.PN ---
- Subjective Encounter Start Date: 01/08/19 Encounter Start Time: 08:40 Pt seen for followup re: UTI. Says she feels well, denies any complaints. - Objective Resuscitation Status - Order Detail: 01/05/19 20:56 Resuscitation Status Routine Resuscitation Status: DNAR: NO Resuscitation Discussed with: as discussed with SURYA BIANCHI Reviewed: Yes Vital Signs & Weight: Vital Signs (12 hours) Temp Pulse Resp BP Pulse Ox 01/08/19 08:00 95 01/08/19 07:49 98.7 F 74 16 149/71 H 95 Weight Admit Weight 150 lb 3.2 oz Weight 150 lb 3.2 oz I&O: 01/07/19 01/08/19 01/09/19 06:59 06:59 06:59 Intake Total 1660 1710 Balance 1660 1710 Result Diagrams: 01/08/19 05:58 01/08/19 05:58 Additional Labs: Labs reviewed by me Phys Exam - Physical Examination Constitutional: NAD HEENT: moist MMs Neck: supple Respiratory: clear to auscultation bilateral Cardiovascular: RRR Gastrointestinal: soft Neurological: moves all 4 limbs Psychiatric: normal affect Dx/Plan (1) UTI (urinary tract infection) Status: Acute Comment: continue ceftriaxone (2) Alzheimer's dementia Code(s): G30.9 - ALZHEIMER'S DISEASE, UNSPECIFIED Status: Chronic Comment: Continue Aricept and Namenda (3) Hypertension Code(s): I10 - ESSENTIAL (PRIMARY) HYPERTENSION Status: Chronic Comment: monitor vitalk signs, titrate antihypertensives as needed (4) Sepsis Code(s): A41.9 - SEPSIS, UNSPECIFIED ORGANISM Status: Resolved (5) Acute metabolic encephalopathy Code(s): G93.41 - METABOLIC ENCEPHALOPATHY Status: Resolved (6) Hyponatremia Code(s): E87.1 - HYPO-OSMOLALITY AND HYPONATREMIA Status: Resolved - Plan continue antibiotics, PT/OT, out of bed/ambulate * . Awaiting SN[facility] Review of Systems - Review of Systems Cardiovascular: negative: chest pain, palpitations, orthopnea, paroxysmal nocturnal dyspnea, edema, light headedness Gastrointestinal: negative: Nausea, Vomiting, Abdominal Pain, Diarrhea, Constipation, Melena, Hematochezia - Medications/Allergies Allergies/Adverse Reactions: Allergies Allergy/AdvReac Type Severity Reaction Status Date / Time Sulfa (Sulfonamide Allergy Rash Verified 06/16/17 11:55 Antibiotics) Medications: Current Medications Acetaminophen (Tylenol) 650 mg PO Q4H PRN PRN Reason: Headache/Fever or Pain Stop: 01/09/19 05:50 Last Admin: 01/07/19 22:08 Dose: 650 mg Aspirin (Aspirin) 325 mg PO DAILY [facility] Last Admin: 01/08/19 08:30 Dose: 325 mg Docusate Sodium (Colace) 100 mg PO DAILY [facility] Last Admin: 01/08/19 08:31 Dose: 100 mg Donepezil HCl (Aricept) 10 mg PO HS [facility] Last Admin: 01/07/19 22:07 Dose: 10 mg Enoxaparin Sodium (Lovenox) 40 mg SC 0900 [facility] Last Admin: 01/08/19 08:31 Dose: 40 mg Ceftriaxone Sodium 1 gm/ (Sodium Chloride) 100 mls @ 200 mls/hr IVPB Q24HR [facility] Last Admin: 01/07/19 15:17 Dose: 100 mls Iron/Minerals/Multivitamins (Theragran M) 1 tab PO DAILY [facility] Last Admin: 01/08/19 08:30 Dose: 1 tab Loratadine (Claritin) 10 mg PO DAILY [facility] Last Admin: 01/08/19 08:31 Dose: 10 mg Melatonin (Melatonin) 3 mg PO HS [facility] Last Admin: 01/07/19 22:07 Dose: 3 mg Memantine (Namenda) 10 mg PO BID [facility] Last Admin: 01/08/19 08:30 Dose: 10 mg Sodium Chloride (Flush - Normal Saline) 10 ml IVF PRN PRN PRN Reason: Saline Flush
[2019-01-08] MEDS: Acetaminophen 325 MG TAB PO PRN ×2 (16:58→20:13)
[2019-01-08] MEDS: cefTRIAXone\\ROCEPHIN 1 GM in Sodium Chloride 0.9% 100 ML IVPB SCH (16:58)
[2019-01-08] MEDS: Melatonin 3 MG TAB PO SCH (20:13)
[2019-01-08] MEDS: Donepezil HCl 10 MG TAB PO SCH (20:13)
[2019-01-09 06:12] LABS: #Basophils 0.1 thou/uL (0.0-0.2); #Eosinphils 0.2 thou/uL (0.0-0.7); #Lymphocytes 1.5 thou/uL (1.20-3.40); #Neutrophils 6.1 thou/uL (1.40-6.50); %Basophils 0.8 % (0.0-1.0); %Eosinophils 2.6 % (0.0-10.0); %Lymphocytes 16.7 % (21.0-51.0); %Monocytes 10.7 % (0.0-10.0); %Neutrophils 69.3 % (42.0-75.0); Hemoglobin 11.5 g/dL (12.0-16.0); Mean Corpuscular HGB CONC 32.5 g/dL (32.0-36.0); Mean Corpuscular Hemoglobin 31.3 pg (27.0-31.0); Mean Corpuscular Volume 96.1 fL (78.0-98.0); Mean Platelet Volume 7.2 fL (7.4-10.4); Platelet Count 272 thou/uL (130-400); RBC Distribution Width 13.6 % (11.5-14.5); Red Blood Cell (RBC) Count 3.67 mill/uL (4.20-5.40); White Blood Cell (WBC) Count 8.8 thou/uL (4.8-10.8)
[2019-01-09 06:31] LABS: Anion Gap 11 mmol/L (10-20); BUN (Urea Nitrogen) 14 mg/dL (9.8-20.1); Calc. Creatinine Clearance 58 mL/min (70-130); Calcium 9.3 mg/dL (7.8-10.44); Carbon Dioxide 31 mmol/L (23-31); Chloride 102 mmol/L (98-107); Estimated GFR-MDRD 74; Glucose 99 mg/dL (83-110); Potassium 4.3 mmol/L (3.5-5.1); Sodium 140 mmol/L (136-145)
[2019-01-09] MEDS: Multivitamin W/ Minerals 1 TAB PO SCH (08:42)
[2019-01-09] MEDS: Loratadine 10 MG TAB PO SCH (08:43)
[2019-01-09] MEDS: Enoxaparin Sodium 40 MG/0.4 ML SYRINGE SC SCH (08:43)
[2019-01-09] MEDS: Docusate 100 MG CAP PO SCH (08:43)
[2019-01-09] MEDS: Aspirin 325 MG TAB PO SCH (08:43)
--- NOTE | 2019-01-09 13:39 | PDOC.PN ---
- Subjective Encounter Start Date: 01/09/19 Encounter Start Time: 09:40 Pt seen for followup re: UTI. No complaints. - Objective Resuscitation Status - Order Detail: 01/05/19 20:56 Resuscitation Status Routine Resuscitation Status: DNAR: NO Resuscitation Discussed with: as discussed with POA Vital Signs & Weight: Vital Signs (12 hours) Temp Pulse Resp BP Pulse Ox 01/09/19 08:00 98.1 F 75 16 105/63 94 L Weight Admit Weight 150 lb 3.2 oz Weight 150 lb 3.2 oz I&O: 01/08/19 01/09/19 01/10/19 06:59 06:59 06:59 Intake Total 1710 1230 Balance 1710 1230 Result Diagrams: 01/09/19 05:36 01/09/19 05:36 Phys Exam - Physical Examination Constitutional: NAD HEENT: moist MMs Neck: supple Respiratory: clear to auscultation bilateral Cardiovascular: RRR Gastrointestinal: soft Neurological: moves all 4 limbs Psychiatric: normal affect Dx/Plan (1) UTI (urinary tract infection) Status: Acute Comment: switch antibiotic to nitrofurantoin (2) Alzheimer's dementia Code(s): G30.9 - ALZHEIMER'S DISEASE, UNSPECIFIED Status: Chronic Comment: stable (3) Hypertension Code(s): I10 - ESSENTIAL (PRIMARY) HYPERTENSION Status: Chronic Comment: controlled (4) Sepsis Code(s): A41.9 - SEPSIS, UNSPECIFIED ORGANISM Status: Resolved (5) Acute metabolic encephalopathy Code(s): G93.41 - METABOLIC ENCEPHALOPATHY Status: Resolved (6) Hyponatremia Code(s): E87.1 - HYPO-OSMOLALITY AND HYPONATREMIA Status: Resolved - Plan * . Review of Systems - Review of Systems Respiratory: negative: Cough, Shortness of Breath, SOB with Excertion, Pleuritic Pain, Wheezing Cardiovascular: other. negative: chest pain, palpitations, orthopnea, paroxysmal nocturnal dyspnea, edema, light headedness - Medications/Allergies Allergies/Adverse Reactions: Allergies Allergy/AdvReac Type Severity Reaction Status Date / Time Sulfa (Sulfonamide Allergy Rash Verified 06/16/17 11:55 Antibiotics) Medications: Current Medications Aspirin (Aspirin) 325 mg PO DAILY [facility] Last Admin: 01/09/19 08:43 Dose: 325 mg Docusate Sodium (Colace) 100 mg PO DAILY [facility] Last Admin: 01/09/19 08:43 Dose: 100 mg Donepezil HCl (Aricept) 10 mg PO HS [facility] Last Admin: 01/08/19 20:13 Dose: 10 mg Enoxaparin Sodium (Lovenox) 40 mg SC 0900 [facility] Last Admin: 01/09/19 08:43 Dose: 40 mg Iron/Minerals/Multivitamins (Theragran M) 1 tab PO DAILY [facility] Last Admin: 01/09/19 08:42 Dose: 1 tab Loratadine (Claritin) 10 mg PO DAILY [facility] Last Admin: 01/09/19 08:43 Dose: 10 mg Melatonin (Melatonin) 3 mg PO HS [facility] Last Admin: 01/08/19 20:13 Dose: 3 mg Memantine (Namenda) 10 mg PO BID [facility] Last Admin: 01/09/19 08:42 Dose: 10 mg Nitrofurantoin Macrocrystals (Macrobid) 100 mg PO BID [facility] Sodium Chloride (Flush - Normal Saline) 10 ml IVF PRN PRN PRN Reason: Saline Flush
[2019-01-09] MEDS: Donepezil HCl 10 MG TAB PO SCH (20:22)
[2019-01-09] MEDS: Nitrofurantoin Monohyd/M-Cryst 100 MG CAP PO SCH (20:22)
[2019-01-09] MEDS: Melatonin 3 MG TAB PO SCH (20:22)
[2019-01-10 08:23] VITALS: BP 123/67; TEMP 98.4
[2019-01-10] MEDS: Docusate 100 MG CAP PO SCH (09:05)
[2019-01-10] MEDS: Multivitamin W/ Minerals 1 TAB PO SCH (09:05)
[2019-01-10] MEDS: Aspirin 325 MG TAB PO SCH (09:05)
[2019-01-10] MEDS: Nitrofurantoin Monohyd/M-Cryst 100 MG CAP PO SCH (09:05)
[2019-01-10] MEDS: Loratadine 10 MG TAB PO SCH (09:06)
[2019-01-10] MEDS: Enoxaparin Sodium 40 MG/0.4 ML SYRINGE SC SCH (09:06)
--- NOTE | 2019-01-11 03:03 | DIS ---
DATE OF ADMISSION: 01/05/2019 DATE OF DISCHARGE: 01/10/2019 PRIMARY CARE PROVIDER: Dr. Juan Diego Ramos. DISCHARGE DIAGNOSES: 1. Sepsis. 2. Urinary tract infection. 3. Hyponatremia. 4. Acute metabolic encephalopathy. 5. Left hip osteoarthritis. CONSULTATIONS DURING THIS HOSPITALIZATION: Orthopedic Surgery, Dr. Florez. CONDITION OF PATIENT ON THE DAY OF DISCHARGE: Stable. I assessed Ms. Herrera on the day of discharge. She denies any chest pain or shortness of breath. Vital signs are stable. S1 and S2 are heard, regular. Lungs are clear to auscultation bilaterally. DISCHARGE MEDICATIONS: 1. Docusate 100 mg daily. 2. Donepezil 10 mg at bedtime. 3. Lisinopril 10 mg daily. 4. Claritin 10 mg daily. 5. Melatonin/pyridoxine 2 tablets at bedtime. 6. Namenda XR 28 mg at bedtime. 7. Aspirin 325 mg daily. 8. Multivitamins 1 tablet daily. 9. Nitrofurantoin 100 mg 2 times a day for 6 more days. HOSPITAL COURSE: Ms. Herrera is a pleasant 88-year-old lady who was admitted to [facility] on 01/05/2019, for sepsis secondary to urinary tract infection. Please refer to Dr. Haro's history and physical note dated 01/06/2019, for further details regarding this admission. She was seen by Orthopedic Surgery Service for suspected left hip fracture. She was found to have left hip osteoarthritis. She improved with antibiotics. Urine cultures grew Escherichia coli, which was resistant to ampicillin, ciprofloxacin, and levofloxacin. Intermediate sensitivity to ampicillin/sulbactam, but was sensitive to amikacin, cefepime, cefoxitin, ceftazidime, ceftriaxone, gentamicin, meropenem, nitrofurantoin, Zosyn, tobramycin, and trimethoprim/sulfamethoxazole. She has been stepped down to nitrofurantoin prior to discharge. She was evaluated by Therapy Services. She is being discharged to [facility] for further management. She was also hyponatremic at the time of admission, with a sodium of 132. This resolved following admission. On 01/09, she had normal electrolytes, creatinine 0.74, white count 8800, hemoglobin 11.5, and platelet count 272,000. Many thanks for allowing me to participate in your patient's care. Please feel free to contact me with any questions or concerns. DISCHARGE DESTINATION: [facility]. TOTAL AMOUNT OF TIME SPENT COORDINATING THIS DISCHARGE: 32 minutes. Job ID: [id number]
== END 2019-01-10 14:27 | DRG 871 ==
LOC: ERS 15:52 → T4-B 17:50
PROVIDERS: ADMIT Emergency Medicine; ATTEND Emergency Medicine
DX: A41.51 Sepsis due to Escherichia coli [E. coli] (principal); G93.41 Metabolic encephalopathy; N39.0 Urinary tract infection, site not specified; E87.1 Hypo-osmolality and hyponatremia; R73.9 Hyperglycemia, unspecified; Z66 Do not resuscitate; F32.9 Major depressive disorder, single episode, unspecified; G30.9 Alzheimer's disease, unspecified; F02.80 Dementia in other diseases classified elsewhere, unspecified severity, without behavioral disturbance, psychotic disturbance, mood disturbance, and anxiety; I10 Essential (primary) hypertension; M16.12 Unilateral primary osteoarthritis, left hip; Z96.659 Presence of unspecified artificial knee joint; Z90.710 Acquired absence of both cervix and uterus; Z87.891 Personal history of nicotine dependence; Z88.2 Allergy status to sulfonamides; Z79.82 Long term (current) use of aspirin
CPT/HCPCS: 36415; 51701; 71045; 72100; 80048; 80053; 81003; 81015; 83605; 85025; 87040; 87077; 87086; 87149; 87186; 96361; 96365; A4353; J0696; J1650; J2405; J7050

== ENCOUNTER 2020-12-03 13:21 | Emergency (ER) | payer MEDICARE, MEDICAID ==
[2020-12-03] MEDS ORDERED: Boostrix 0.5 ML (Tdap) VIAL ONE (13:50)
[2020-12-03] MEDS ORDERED: Acetaminophen/Codeine 30-300mg Tablet ONE (13:50)
--- NOTE | 2020-12-03 14:12 | RAD ---
LEFT SHOULDER 3 VIEWS: HISTORY: Fall. Shoulder pain. FINDINGS: The humeral head is high riding. This would suggest underlying chronic rotator cuff tear. Mild arth ritic changes of the shoulder are noted. No fracture or dislocation. IMPRESSION: No acute injury. POS: [facility]
--- NOTE | 2020-12-03 14:14 | CT ---
Exam: Head CT without contrast HISTORY: Status post fall. COMPARISON: 05/22/2020 FINDINGS: Hemorrhage: No intraparenchymal hemorrhage or extra-axial hematoma. Brain parenchyma: Cortical drew-white matter differentiation is preserved. No mass effect or midline shift. Basilar cisterns are patent.Stable chronic small vessel ischemic changes of the white matter Ventricular system: Ventricles and sulci are patent and symmetric. Calvarium: Intact. Sinuses and mastoid air cells: Right maxillary sinus mucus retention cyst IMPRESSION: 1. No intracranial posttraumatic sequelae 2. No acute intracranial process.
--- NOTE | 2020-12-03 14:22 | CT ---
CT CERVICAL SPINE NONCONTRAST: DATE: 12/03/2020 HISTORY: 89-year-old female status post acute cervical trauma due to fall. FINDINGS: There are no jumped or perched facets. There is no evidence of acute fracture. The vertebral body h eights are maintained. There is no prevertebral soft tissue swelling. There are degenerative disc c hanges and facet osteoarthrosis. IMPRESSION: 1. Cervical spondylosis. 2. No evidence of acute fracture or acute traumatic subluxation. jn [] POS: [facility]
[2020-12-03] MEDS ORDERED: Bacitracin 1 PK ONE ×2 (15:33→15:34)
== END 2020-12-03 15:52 ==
LOC: ERS 13:21
DX: S01.01XA Laceration without foreign body of scalp, initial encounter (principal); S40.012A Contusion of left shoulder, initial encounter; I10 Essential (primary) hypertension; Z87.891 Personal history of nicotine dependence; W01.0XXA Fall on same level from slipping, tripping and stumbling without subsequent striking against object, initial encounter
CPT/HCPCS: 12002; 70450; 72125; 90471; 90715; 93005